=== PATIENT | female | born 1995 | race Caucasian/White ===

== ENCOUNTER 2018-10-01 17:52 | Emergency (ER) | payer MEDICAID ==
[~2018-10-01] VITALS: Ht 160 cm; Wt 54.6 kg
[2018-10-01 17:58] VITALS: Ht 160 cm; Wt 54.6 kg
[2018-10-01 19:22] LABS: PLATELET COUNT 188 x10^3mcL (130-400); RED CELL DISTRIBUTION WIDTH 12.9 % (11.5-14.5)
[2018-10-01 19:28] LABS: CARBON DIOXIDE 27.4 mmol/L (21-32); CHLORIDE SERUM 92 mmol/L (98-107); GFR1 > 60 mL/min; GLUCOSE SERUM 108 mg/dL (74-106); POTASSIUM SERUM 3.4 mmol/L (3.5-5.1); SODIUM SERUM 133 mmol/L (136-145)
[2018-10-01 19:29] LABS: BASOPHIL % 0 % (0-2)
[2018-10-01 19:43] LABS: ALKALINE PHOSPHATASE 92 U/L (46-116); ALT/SGPT 21 U/L (14-59); AST/SGOT 22 U/L (15-37); TOTAL PROTEIN, SERUM 8.2 g/dL (6.4-8.2)
[2018-10-01 21:52] VITALS: BP 122/65
== END 2018-10-01 21:25 | disposition home or self-care (01) ==
LOC: ED 17:52
PROVIDERS: Emergency Medicine
DX: N12 Tubulo-interstitial nephritis, not specified as acute or chronic (principal)
CPT/HCPCS: 87804; J1885; J2543; J7030